=== PATIENT | male | born 1980 | race Caucasian/White ===

== ENCOUNTER 2017-08-30 21:08 | Emergency (ER) | payer OTHER ==
[~2017-08-30] VITALS: Ht 172.7 cm; Wt 63.0 kg
[2017-08-30 21:20] VITALS: BP 131/82
[2017-08-30] MEDS ORDERED: IBUPROFEN 200 MG TABLET ONE (21:50)
[2017-08-30] MEDS ORDERED: DIPH,PERTUSS(ACELL),TET VAC/PF 0.5 ML IM-VACC ONE ×2 (21:50→22:00)
[2017-08-30] MEDS ORDERED: IBUPROFEN 200 MG TABLET PO ONE (22:00)
== END 2017-08-30 23:17 | disposition home or self-care (01) ==
LOC: ED 23:00
DX: S91.332A Puncture wound without foreign body, left foot, initial encounter (principal); W45.0XXA Nail entering through skin, initial encounter; Y93.89 Activity, other specified; Y99.8 Other external cause status; Y92.009 Unspecified place in unspecified non-institutional (private) residence as the place of occurrence of the external cause
CPT/HCPCS: 90471; 90715

== ENCOUNTER 2017-11-12 16:50 | Emergency (ER) | payer MEDICAID, OTHER ==
[~2017-11-12] VITALS: Ht 172.7 cm; Wt 62.9 kg
[2017-11-12 16:51] VITALS: BP 113/75
== END 2017-11-12 17:27 ==
LOC: ED 17:05
DX: H66.001 Acute suppurative otitis media without spontaneous rupture of ear drum, right ear (principal); H60.91 Unspecified otitis externa, right ear
CPT/HCPCS: 99283

== ENCOUNTER 2017-12-25 15:28 | Emergency (ER) | payer MEDICAID ==
[~2017-12-25] VITALS: Ht 172.7 cm; Wt 61.4 kg
[2017-12-25 16:08] LABS: BASOPHILS # (AUTO) 0.01 x10^3/uL (0-0.1); BASOPHILS % (AUTO) 0 % (0-1); EOSINOPHILS # (AUTO) 0.05 x10^3/uL (0-0.4); EOSINOPHILS % (AUTO) 1 % (1-7); LYMPHOCYTES # (AUTO) 2.17 x10^3/uL (1-3.4); LYMPHOCYTES % (AUTO) 18 % (22-44); MD NO; MEAN CORPUSCULAR HEMOGLOBIN 30.6 pg (27.5-34.5); MEAN CORPUSCULAR HGB CONC 33.7 g/dL (33.2-36.2); MEAN CORPUSCULAR VOLUME 90.8 fL (81-97); MEAN PLATELET VOLUME 7.7 fL (7.4-10.4); MONOCYTES # (AUTO) 0.85 x10^3/uL (0.2-0.8); MONOCYTES % (AUTO) 7 % (2-9); NEUTROPHILS # (AUTO) 8.92 x10^3/uL (1.8-6.8); NEUTROPHILS % (AUTO) 74 % (42-75); PLATELET COUNT 225 x10^3/uL (130-400); RED BLOOD COUNT 4.53 x10^6/uL (4.38-5.82); RED CELL DISTRIBUTION WIDTH 13.3 % (9.4-14.8)
[2017-12-25 16:15] LABS: ALANINE AMINOTRANSFERASE 30 U/L (12-78); ALBUMIN 3.5 g/dL (3.4-5.0); ANION GAP 7 mmol/L (5-15); CALCIUM 8.5 mg/dL (8.5-10.1); CHLORIDE 101 mmol/L (98-107); CREATININE 0.72 mg/dL (0.7-1.3)
[2017-12-25 16:17] LABS: ALKALINE PHOSPHATASE 74 U/L (45-117); BILIRUBIN,TOTAL 0.5 mg/dL (0.2-1.0); TOTAL PROTEIN 7.9 g/dL (6.4-8.2)
[2017-12-25 16:45] LABS: CULTURE INDICATED? YES; MICROSCOPIC INDICATED
[2017-12-25 16:51] VITALS: BP 113/67
== END 2017-12-25 16:58 | disposition home or self-care (01) ==
LOC: ED 16:23
DX: H66.003 Acute suppurative otitis media without spontaneous rupture of ear drum, bilateral (principal); J02.0 Streptococcal pharyngitis
CPT/HCPCS: 36415; 80053; 81001; 85025; 87077; 87086; 87186; 99284

== ENCOUNTER 2020-11-28 18:07 | Emergency (ER) | payer SELFPAY ==
[~2020-11-28] VITALS: Ht 172.7 cm; Wt 64.5 kg
--- NOTE | 2020-11-28 18:24 | NUR ---
PT C/O INTERMITTENT HERNIA RLQ X4 MONTHS. HERNIA HAS BEEN OUT FOR A FEW DAYS. MULTIPLE ROUND OPEN AREAS ON ARMS AND LEGS THAT STARTED YESTERDAY. PT CONNECTED TO MONITORING. CALL LIGHT IN REACH.
[2020-11-28 18:25] VITALS: BP 116/65
--- NOTE | 2020-11-28 18:31 | NUR ---
PT STATES OCCASSIONAL IV DRUG USER.
--- NOTE | 2020-11-28 18:44 | NUR ---
LINE DRAWN AROUND REDNESS TO RIGHT LATERAL KNEE, PER PROVIDER INSTRUCTIONS.
== END 2020-11-28 19:18 | disposition home or self-care (01) ==
LOC: ED 19:01
DX: L03.113 Cellulitis of right upper limb (principal); L03.116 Cellulitis of left lower limb; L03.115 Cellulitis of right lower limb; L03.114 Cellulitis of left upper limb
CPT/HCPCS: 99283